=== PATIENT | female | born 1980 | race Caucasian/White ===

== ENCOUNTER 2017-01-27 20:56 | Emergency (ER) | payer SELFPAY ==
[2017-01-27] MEDS: HYDROmorphone HCL/PF 1 MG/ML DISP.SYRIN IVP ONE ×2 (21:30→23:02)
[2017-01-27] MEDS: 0.9 % SODIUM CHLORIDE 1,000 ML IV ONE (21:30)
[2017-01-27] MEDS: ONDANSETRON HCL/PF 4 MG/ 2ML VIAL IVP ONE (21:30)
--- NOTE | 2017-01-27 21:41 | ED Physician Documentation ---
General Adult - HISTORIAN Historian: patient, spouse - HPI Stated Complaint: migraine Chief Complaint: General Adult Onset: hours Timing: still present Severity: moderate Further Comments: yes (Pt is a 37 yo female with migraine headache, traveling with truck-maintenance truck driver . Headache began this am and is similar to previous migraine headaches but is more intense than usual. Pt has had nausea/vomiting, which she does not usually get. Pt took OTC BC Powder, an aspirin and caffeine product, which usually works for her headaches, but which did not help on this occasion. Pt has a secondary issue of rash on trunk and limbs which appear as bug bites and which has been itchy.) - ROS CONST: no problems EYES/ENT: none CVS/RESP: none GI/: vomiting, nausea MS/SKIN/LYMPH: rash NEURO/PSYCH: headache - PAST HX Past History: other (anxiey, DM) Allergies/Adverse Reactions: Allergies Allergy/AdvReac Type Severity Reaction Status Date / Time clindamycin Allergy Severe Anaphylaxis Verified 01/27/17 21:19 ketorolac tromethamine Allergy Severe Anaphylaxis Verified 01/27/17 21:19 [From Toradol] tramadol Allergy Severe Anaphylaxis Verified 01/27/17 21:19 Home Medications: Ambulatory Orders Medication Instructions Recorded Amitriptyline HCl [Amitriptyline 10 mg PO HS 01/27/17 HCl] Aspirin EC [Ecotrin] 81 mg PO D 01/27/17 Citalopram Hydrobromide [Celexa] 40 mg PO D 01/27/17 Metformin HCl [Glucophage] 1,000 mg PO BID 01/27/17 - SOCIAL HX Smoking History: cigarettes - FAMILY HX Family History: No - VITAL SIGNS Vital Signs: Vital Signs Temp Pulse Resp BP Pulse Ox 98.1 F 72 20 156/95 96 01/27/17 20:56 01/27/17 20:56 01/27/17 20:56 01/27/17 20:56 01/27/17 20:56 - REVIEWED ASSESSMENTS Nursing Assessment Reviewed: Yes Vitals Reviewed: Yes Progress - Progress Progress: NS 1 L IVF Zofran 4 mg IV Dilaudid 1 mg IV Phenergan 25 mg IV in saline Dexamethasone 8 mg IV Dilaudid 0.5 mg IV improved Rx Keflex 500 mg po tid x 10 days for rash/skin lesions. 1st dose in ER. ED Results Lab/Radiology - Orders Orders: ED Orders Category Date Time Status Place IV Lock 1T Care 01/27/17 21:16 Active 0.9 % Sodium Chloride [Normal Saline] 1,000 ml Med 01/27/17 21:16 Active IV Q1H HYDROmorphone HCL/PF [Dilaudid] Med 01/27/17 21:16 Discontinued 1 mg IVP NOW ONE Ondansetron HCl/Pf [Zofran 4 mg/2 ml] Med 01/27/17 21:16 Discontinued 4 mg IVP NOW ONE General Adult Physical Exam - PHYSICAL EXAM GENERAL APPEARANCE: moderate distress EENT: eye inspection normal, pharynx normal NECK: normal inspection, supple RESPIRATORY: no resp distress, chest non-tender, breath sounds normal CVS: reg rate & rhythm, heart sounds normal ABDOMEN: soft, no organomegaly, normal bowel sounds SKIN: other (diffuse small papules on trunk and extremities ) EXTREMITIES: non-tender, normal range of motion, no evidence of injury NEURO: oriented X3, motor nml, sensation nml Discharge Clincal Impression: Migraine Qualifiers: Migraine type: unspecified Status migrainosus presence: without status migrainosus Intractability: not intractable Qualified Code(s): G43.909 - Migraine, unspecified, not intractable, without status migrainosus Referrals: Primary Doctor,No [Primary Care Provider] - Home Medications: Ambulatory Orders Amitriptyline HCl [Amitriptyline HCl] 10 mg PO HS 01/27/17 Aspirin EC [Ecotrin] 81 mg PO D 01/27/17 Citalopram Hydrobromide [Celexa] 40 mg PO D 01/27/17 Metformin HCl [Glucophage] 1,000 mg PO BID 01/27/17 Condition: Good Disposition: 01 HOME, SELF-CARE Decision to Admit: NO Decision Time: 23:38
[2017-01-27] MEDS: DEXAMETHASONE SOD PHOS 4 MG/ML VIAL IVP ONE (22:21)
[2017-01-27] MEDS: PROMETHAZINE HCL 25 MG in 0.9 % SODIUM CHLORIDE 50 ML IV ONE (23:09)
[2017-01-27] MEDS: 0.9 % SODIUM CHLORIDE 500 ML IV ONE (23:18)
[2017-01-27] MEDS: CEPHALEXIN 250 MG CAPSULE PO ONE (23:40)
[2017-01-27] MEDS ORDERED: CEPHALEXIN 250 MG CAPSULE ONE (23:45)
[2017-01-28 00:08] VITALS: BP 149/88
[2017-01-28] MEDS ORDERED: CEPHALEXIN 250 MG CAPSULE PO ONE (00:26)
== END 2017-01-27 23:42 | disposition home or self-care (01) ==
LOC: ED 20:56
DX: G43.909 Migraine, unspecified, not intractable, without status migrainosus (principal)
CPT/HCPCS: J1100; J1170; J2405; J2550; J7030; 96361; 96374; 96375; 99283; S1016